=== PATIENT | male | born 1940 | race Hispanic/Latino ===

== ENCOUNTER 2017-04-16 03:53 | Emergency (ER) | payer OTHER ==
[2017-04-16 04:20] LABS: RAPID GROUP A STREP NEGATIVE (NEGATIVE)
[2017-04-16] MEDS ORDERED: ACETAMINOPHEN-CODEINE ELIXIR 5 ML UDCUP ONE (04:26)
[2017-04-16] MEDS ORDERED: IPRATROPIUM/ALBUTEROL SULFATE 3 ML SOLUTION IH ONE (04:29)
[2017-04-16] MEDS ORDERED: OSELTAMIVIR PHOSPHATE 75 MG CAP ONE (04:42)
[2017-04-16 04:46] LABS: EOSINOPHILS % (AUTO) 5.9 % (0.0-8.0); LYMPHOCYTES % (AUTO) 17.7 % (21.0-51.0); MEAN CORPUSCULAR HGB CONC 35.5 g/dL (32.0-36.0); MEAN CORPUSCULAR VOLUME 93.1 fL (79-99); MONOCYTES % (AUTO) 11.1 % (3.0-13.0); NEUTROPHILS % (AUTO) 64.3 % (40.0-77.0); PLATELET COUNT (AUTO) 175 K/uL (130-400); RED BLOOD CELL COUNT(AUTO) 3.86 MIL/uL (4.50-6.20); RED CELL DISTRIBUTION WIDTH 13.6 % (11.0-15.5); WHITE BLOOD COUNT (AUTO) 6.4 K/uL (4.8-10.8)
[2017-04-16 04:55] LABS: CREATININE 1.2 mg/dL (0.5-1.5)
[2017-04-16 04:56] LABS: INR 0.97 (0.85-1.15); PARTIAL THROMBOPLASTIN TIME 25.5 SEC (26.3-35.5); PROTHROMBIN TIME 10.2 SEC (9.6-11.6)
[2017-04-16 04:59] LABS: BILIRUBIN,TOTAL 0.3 mg/dL (0.2-1.0)
[2017-04-16] MEDS ORDERED: DEXAMETHASONE SOD PHOSPHATE 4 MG/ML 1ML VIAL ONE (05:17)
[2017-04-16] MEDS ORDERED: IBUPROFEN 600 MG TABLET ONE (05:23)
== END 2017-04-16 05:51 | disposition home or self-care (01) ==
LOC: EDH 03:53
DX: J10.1 Influenza due to other identified influenza virus with other respiratory manifestations (principal); R09.81 Nasal congestion; R05 Cough; E11.9 Type 2 diabetes mellitus without complications; E07.9 Disorder of thyroid, unspecified; R79.1 Abnormal coagulation profile; Z98.890 Other specified postprocedural states
CPT/HCPCS: 36415; 71045; 80053; 84484; 85025; 85610; 85730; 87804 ×2; 87880; 93005; 94640; 96372; 99285; J1100

== ENCOUNTER → 2021-12-05 | Outpatient (CLI) | payer OTHER | END | disposition home or self-care (01) | LOC: RAH 13:37 | PROVIDERS: ATTEND Family Medicine | DX: M47.27 Other spondylosis with radiculopathy, lumbosacral region (principal); M47.816 Spondylosis without myelopathy or radiculopathy, lumbar region; M48.061 Spinal stenosis, lumbar region without neurogenic claudication | CPT/HCPCS: 72148 ==

== ENCOUNTER 2022-04-30 05:33 | Observation (INO) | payer OTHER ==
[2022-04-28 10:18] LABS: BASOPHILS % (AUTO) 1.2 % (0.0-5.0); EOSINOPHILS % (AUTO) 6.2 % (0.0-8.0); HEMATOCRIT 37.6 % (42-54); LYMPHOCYTES % (AUTO) 33.7 % (21.0-51.0); MEAN CORPUSCULAR HEMOGLOBIN 32.1 pg (27.0-33.0); MEAN CORPUSCULAR HGB CONC 33.2 g/dL (32.0-36.0); MEAN CORPUSCULAR VOLUME 96.4 fL (79-99); MONOCYTES % (AUTO) 10.4 % (3.0-13.0); NEUTROPHILS % (AUTO) 47.9 % (40.0-77.0); PLATELET COUNT (AUTO) 208 K/uL (130-400); RED CELL DISTRIBUTION WIDTH 13.3 % (11.0-15.5); WHITE BLOOD COUNT (AUTO) 5.2 K/uL (4.8-10.8)
[2022-04-28 10:25] LABS: CREATININE 1.3 mg/dL (0.5-1.5); POTASSIUM 4.4 mmol/L (3.5-5.1)
[2022-04-28 10:44] VITALS: BP 131/54
[~2022-04-30] VITALS: Ht 162.6 cm; Wt 81.9 kg
[2022-04-30] VITALS (32 sets, daily range): BP systolic 84–143; BP diastolic 49–74
[~2022-04-30 05:33] MED LIST: ATOR40TA71 PO; BETA1TAB20 PO; CEFAZOLIN SODIUM 1 GM VIAL ONE; DOCU100C33 PO; FENO134C21 PO; LEVO100C4 PO; LISI1TAB51 PO; METF-444 PO; MORPHINE PF 100MG/10ML AMP IV ONE; PANT40TA54 PO; TAMS-1 PO; THROMBIN-JMI 20000 UNIT KIT TP ONE
[2022-04-30] MEDS ORDERED: 0.9%NACL 1000ML 1,000 ML IV ONE (06:28)
[2022-04-30] MEDS ORDERED: CEFAZOLIN SODIUM 2 GM VIAL ONE (06:28)
[2022-04-30] MEDS ORDERED: SUCCINYLCHOLINE CHLORIDE 20 MG/ML 10 ML VIAL ONE (06:45)
[2022-04-30] MEDS ORDERED: PROPOFOL 10 MG/ML 20ML VIAL IV ONE (06:45)
[2022-04-30] MEDS ORDERED: LIDOCAINE PF 100MG/5ML (2%) SYRINGE 5ML ONE (06:45)
[2022-04-30] MEDS ORDERED: MIDAZOLAM HCL 1 MG/ML 2ML VIAL ONE (06:46)
[2022-04-30] MEDS ORDERED: GLYCOPYRROLATE 1 MG/5 ML SYRINGE ONE (06:46)
[2022-04-30] MEDS ORDERED: ONDANSETRON 4MG INJ ONE ×2 (06:46→11:08)
[2022-04-30] MEDS ORDERED: NEOSTIGMINE 5MG/5ML SYR IV ONE (06:46)
[2022-04-30] MEDS ORDERED: ROCURONIUM 10MG/1ML SYR 10 MG/ML ML ONE (06:46)
[2022-04-30] MEDS ORDERED: FENTANYL CITRATE PF 50 MCG/1 ML 2ML VIAL ONE ×2 (06:46→09:17)
[2022-04-30] MEDS ORDERED: DEXAMETHASONE SOD PHOSPHATE 10MG/ML 1ML VIAL ONE ×2 (06:46→06:50)
[2022-04-30] MEDS ORDERED: PHENYLEPHRINE HCL 10 MG/ML 1ML VIAL IV ONE ×2 (06:51→09:21)
[2022-04-30] MEDS ORDERED: ARTIFICIAL TEARS 3.5 GM OINTMENT ONE (06:51)
[2022-04-30] MEDS: BUPIVACAINE/EPI/PF 0.25% 30ML VIAL IJ SCH (08:03)
[2022-04-30] MEDS ORDERED: EPHEDRINE SULFATE 50 MG/ML AMPULE ONE ×2 (08:57→10:38)
[2022-04-30] MEDS ORDERED: ESMOLOL HCL 10 MG/ML 10 ML VIAL ONE (10:10)
[2022-04-30] MEDS: CEFAZOLIN SODIUM 1 GM VIAL IVPB SCH ×2 (10:30→17:09)
[2022-04-30] MEDS ORDERED: 0.9%NACL 10ML VIAL IVP PRN (10:30)
[2022-04-30] MEDS: DEXAMETHASONE SOD PHOSPHATE 4 MG/ML 1ML VIAL IVP SCH ×3 (10:30→21:38)
[2022-04-30] MEDS ORDERED: PROMETHAZINE HCL 25 MG/ML 1ML AMPULE IM PRN (10:30)
[2022-04-30] MEDS ORDERED: MORPHINE 2 MG SYG IVP PRN (10:30)
[2022-04-30] MEDS ORDERED: HYDROCODONE/ACETAMINOPHEN 5/325 MG TAB PO PRN (10:30)
[2022-04-30] MEDS ORDERED: ALBUMIN (HUMAN) 5% 250 ML IV ONE (10:38)
[2022-04-30] MEDS ORDERED: MEPERIDINE-PF 25 MG/ML SYG ONE (11:09)
[2022-04-30] MEDS ORDERED: FENOFIBRATE 134 MG PO SCH (12:00)
[2022-04-30] MEDS: LACTATED RINGERS 1000ML 1,000 ML IV SCH (13:36)
[2022-04-30] MEDS: METFORMIN HCL 500 MG TABLET PO SCH (16:36)
[2022-04-30] MEDS: INSULIN HUMULIN R 100 UNIT/ML 3ML SQ SCH ×2 (16:39→21:42)
[2022-04-30] MEDS ORDERED: ATORVASTATIN 40 MG TABLET PO SCH (21:00)
[2022-04-30] MEDS ORDERED: TAMSULOSIN HCL 0.4 MG CAP.ER.24H PO SCH (21:00)
[2022-04-30] MEDS: DOCUSATE SODIUM 100 MG CAP PO SCH (21:38)
[2022-05-01] VITALS: BP 110/68
[2022-05-01] MEDS: LACTATED RINGERS 1000ML 1,000 ML IV SCH (00:03)
[2022-05-01] MEDS: CEFAZOLIN SODIUM 1 GM VIAL IVPB SCH ×2 (02:30→09:49)
[2022-05-01 04:00] VITALS: BP 112/55
[2022-05-01] MEDS: DEXAMETHASONE SOD PHOSPHATE 4 MG/ML 1ML VIAL IVP SCH ×2 (04:09→09:55)
[2022-05-01] MEDS: INSULIN HUMULIN R 100 UNIT/ML 3ML SQ SCH (07:30)
[2022-05-01 07:49] VITALS: BP 119/63
[2022-05-01] MEDS: BUPIVACAINE/EPI/PF 0.25% 30ML VIAL IJ SCH (07:58)
[2022-05-01] MEDS ORDERED: **HM**PRESERVISION AREDS PO SCH (09:00)
[2022-05-01] MEDS ORDERED: PANTOPRAZOLE 40 MG TAB DR PO SCH (09:00)
[2022-05-01] MEDS ORDERED: HYDROCHLOROTHIAZIDE 25 MG TABLET PO SCH (09:00)
[2022-05-01] MEDS ORDERED: LEVOTHYROXINE 100 MCG TABLET PO SCH (09:00)
[2022-05-01] MEDS ORDERED: LISINOPRIL 20 MG TABLET PO SCH (09:00)
[2022-05-01] MEDS: METFORMIN HCL 500 MG TABLET PO SCH (09:54)
[2022-05-01] MEDS: DOCUSATE SODIUM 100 MG CAP PO SCH (09:55)
== END 2022-05-01 10:50 | disposition home or self-care (01) ==
LOC: DAH 05:33 → DAHIP 05:34 → 4DH 13:25
PROVIDERS: ADMIT Neurological Surgery; ATTEND Neurological Surgery
DX: M48.061 Spinal stenosis, lumbar region without neurogenic claudication (principal); Z20.822 Contact with and (suspected) exposure to COVID-19; M54.16 Radiculopathy, lumbar region; I10 Essential (primary) hypertension; E11.9 Type 2 diabetes mellitus without complications; E03.9 Hypothyroidism, unspecified; E78.5 Hyperlipidemia, unspecified; K21.9 Gastro-esophageal reflux disease without esophagitis; Z79.899 Other long term (current) drug therapy
CPT/HCPCS: 80048; 85025; 87426; 36415; 71045; 63047; 63048 ×3; 96376 ×2; 96372; 96365; 96375; 82948 ×5; 72020; 97161; 97039 ×3; 97116; G0378 ×23; A4663; J7120 ×2; A4344; P9045; J3010 ×2; J0690 ×3; J3490 ×6; J1100 ×6; J2710; J0330; J7030; J2001; J2250; J2704; J2274; J2405 ×2; J2175; J2370 ×2; J1815; A4649 ×3; A4215; A4223; A4222; A4221; A4600; A4510

== ENCOUNTER → 2023-12-07 | Outpatient (CLI) | payer OTHER ==
[~2023-12-07] MED LIST changes: -CEFAZOLIN SODIUM 1 GM VIAL ONE; -MORPHINE PF 100MG/10ML AMP IV ONE; -THROMBIN-JMI 20000 UNIT KIT TP ONE
[2023-12-07 12:26] LABS: BASOPHILS # (AUTO) 0.05 K/uL (0.00-0.20); BASOPHILS % (AUTO) 0.9 % (0.0-5.0); EOSINOPHILS # (AUTO) 0.36 K/uL (0.00-0.70); EOSINOPHILS % (AUTO) 6.3 % (0.0-8.0); HEMATOCRIT 38.9 % (42-54); IMMATURE GRANULOCYTE ABSOLUTE 0.06 K/uL (0-1); LYMPHOCYTES # (AUTO) 1.8 K/uL (1.0-4.8); LYMPHOCYTES % (AUTO) 32.3 % (21.0-51.0); MEAN CORPUSCULAR HEMOGLOBIN 31.3 pg (27.0-33.0); MEAN CORPUSCULAR HGB CONC 32.4 g/dL (32.0-36.0); MEAN CORPUSCULAR VOLUME 96.5 fL (79-99); MONOCYTES # (AUTO) 0.6 K/uL (0.1-1.0); MONOCYTES % (AUTO) 10.9 % (3.0-13.0); NEUTROPHILS # (AUTO) 2.8 K/uL (1.8-7.7); NEUTROPHILS % (AUTO) 48.5 % (40.0-77.0); PLATELET COUNT (AUTO) 206 K/uL (130-400); RED BLOOD CELL COUNT(AUTO) 4.03 MIL/uL (4.50-6.20); RED CELL DISTRIBUTION WIDTH 13.8 % (11.0-15.5); WHITE BLOOD COUNT (AUTO) 5.7 K/uL (4.8-10.8)
[2023-12-07 12:34] LABS: CREATININE 1.7 mg/dL (0.5-1.3); POTASSIUM 4.2 mmol/L (3.5-5.1)
[2023-12-07 12:37] LABS: INR 1.01 (0.85-1.15); PROTHROMBIN TIME 10.9 SEC (9.6-11.6)
[2023-12-07 12:39] LABS: PARTIAL THROMBOPLASTIN TIME 25.7 SEC (26.3-35.5)
== END | disposition home or self-care (01) ==
LOC: LAB 09:54
PROVIDERS: ATTEND Internal Medicine Cardiovascular Disease
DX: I87.2 Venous insufficiency (chronic) (peripheral) (principal); I87.1 Compression of vein; R60.9 Edema, unspecified; I10 Essential (primary) hypertension; E11.9 Type 2 diabetes mellitus without complications; E78.5 Hyperlipidemia, unspecified; Z79.01 Long term (current) use of anticoagulants
CPT/HCPCS: 36415; 80048; 85025; 85610; 85730

== ENCOUNTER → 2024-01-22 | Outpatient (CLI) | payer OTHER ==
[2024-01-22 12:28] LABS: BASOPHILS # (AUTO) 0.07 K/uL (0.00-0.20); EOSINOPHILS # (AUTO) 0.45 K/uL (0.00-0.70); EOSINOPHILS % (AUTO) 6.3 % (0.0-8.0); HEMATOCRIT 40.9 % (42-54); IMMATURE GRANULOCYTE ABSOLUTE 0.07 K/uL (0-1); LYMPHOCYTES # (AUTO) 2.1 K/uL (1.0-4.8); LYMPHOCYTES % (AUTO) 29.3 % (21.0-51.0); MEAN CORPUSCULAR HEMOGLOBIN 31.6 pg (27.0-33.0); MEAN CORPUSCULAR HGB CONC 33.3 g/dL (32.0-36.0); MEAN CORPUSCULAR VOLUME 95.1 fL (79-99); MONOCYTES # (AUTO) 0.6 K/uL (0.1-1.0); MONOCYTES % (AUTO) 8.7 % (3.0-13.0); NEUTROPHILS # (AUTO) 3.8 K/uL (1.8-7.7); NEUTROPHILS % (AUTO) 53.7 % (40.0-77.0); PLATELET COUNT (AUTO) 211 K/uL (130-400); WHITE BLOOD COUNT (AUTO) 7.1 K/uL (4.8-10.8)
[2024-01-22 12:39] LABS: INR 1.04 (0.85-1.15); PROTHROMBIN TIME 11.2 SEC (9.6-11.6)
[2024-01-22 12:40] LABS: PARTIAL THROMBOPLASTIN TIME 25.1 SEC (26.3-35.5)
[2024-01-22 12:50] LABS: BILIRUBIN,TOTAL 0.6 mg/dL (0.2-1.0); CREATININE 1.7 mg/dL (0.5-1.3); POTASSIUM 4.6 mmol/L (3.5-5.1); TOTAL PROTEIN, SERUM 7.6 g/dL (6.0-8.3)
== END | disposition home or self-care (01) ==
LOC: LAB 10:40
PROVIDERS: ATTEND Internal Medicine Cardiovascular Disease
DX: I87.2 Venous insufficiency (chronic) (peripheral) (principal); I87.1 Compression of vein; M79.604 Pain in right leg
CPT/HCPCS: 36415; 80053; 85025; 85610; 85730